=== PATIENT | female | born 1950 | race Caucasian/White ===

== ENCOUNTER 2018-05-03 10:34 | Day surgery (SDC) | payer MEDICARE, BC ==
[~2018-05-03] VITALS: Ht 167.6 cm; Wt 77.3 kg
[2018-05-03 11:01] LABS: BASOPHILS 0.2 % (0-2); EOSINOPHILS 0.4 % (0-7); HEMATOCRIT 45.7 % (36.0-48.0); HEMOGLOBIN 15.9 g/dL (12-16); IMMATURE GRANULOCYTES 0.2 % (0-5); MCH 31.5 pg (26.0-34.0); MCHC 34.8 g/dL (31.0-37.0); MCV 90.5 fL (80.0-100.0); MEAN PLATELET VOLUME 10.5 fL (7.4-10.4); NEUTROPHILS 76.2 % (40-80); PLATELET COUNT 251 10x3/uL (130-400); RBC 5.05 10x6/uL (4.00-5.40); RDW 12.8 % (11.5-14.5); WBC 8.4 10x3/uL (4.8-10.8)
[2018-05-03 11:13] LABS: ANION GAP 16.5 mmol/L (8-16); CALCIUM 9.4 mg/dL (8.5-10.1); CARBON DIOXIDE 24.2 mmol/L (21.0-32.0); POTASSIUM - SERUM 3.7 mmol/L (3.5-5.1)
[2018-05-03] MEDS ORDERED: PROTONIX40 MG PO (11:33)
[2018-05-03] MEDS ORDERED: PEPCID AC20 MG PO (11:33)
[2018-05-03 11:40] VITALS: BP 133/81; Ht 167.6 cm; Wt 77.3 kg
--- NOTE | 2018-05-03 16:23 | OP ---
PATIENT NAME: KRISTEN URIARTE MEDICAL RECORD: [id number] :52 LOCATION:D.OPS ADMISSION DATE: SURGEON: LYDIA MANUEL MD DATE OF OPERATION: 05/03/2018 PREOPERATIVE DIAGNOSIS: Complex polyp within the transverse colon at 55 cm. POSTOPERATIVE DIAGNOSES: Complex polyp within the transverse colon at 55 cm with faded tattoo. PROCEDURES: 1. Total colonoscopy to cecum. 2. Cold endoscopic biopsies, injection of Eleview submucosally, application of 4 endoscopic clips for hemostasis and tattooing proximal and distal to the polyp, which is on a fold. SURGEON: Lydia Manuel MD REVIVAL CLERK: None. BLOOD LOSS: Minimal. ANESTHESIA: IV sedation. COMPLICATIONS: None. The risks, possible complications and alternatives to procedure were explained to the patient. She elects to proceed. ENDOSCOPIC COURSE: The patient was conveyed to endoscopy suite electively on 05/03/2018. IV sedation was induced by the anesthesia staff. The patient was placed in the Farfan position. A digital rectal examination was performed. A colonoscope was inserted through the anus. It was easily advanced to the cecum. The prep was adequate. I slowly withdrew the endoscope. A combination of normal imaging and narrow band imaging were utilized. I identified the polyp on a fold. It did appear to be about a 5 cm polyp and there was some scarring particularly at the 6 o'clock position. I then advanced a sclerotherapy needle. I performed a submucosal injection with Eleview. I then advanced an endoscopic snare. I tried to snare the polyp off, but the polyp was not able to be snared. Snare was removed. Multiple cold biopsies were obtained. I then ablated the remaining polyp utilizing the argon plasma market research interviewer with the right colon setting in the forced mode. Because the tattoo had faded, I advanced a sclerotherapy needle and performed a submucosal injection of Maria Guadalupe ink proximal and distal to the polypectomy site. I was concerned about some bleeding within the polypectomy bed and for this reason, I had laid down a row of endoscopic clips times 4. The endoscope was then withdrawn under direct vision. I dragged the folds. The pullback was greater than a 28-minute pullback. A retroflexed view was obtained in the rectum. I then unretroflexed the scope and removed it under direct vision. I will see the patient in my office in 2-3 weeks. I will plan for her next colonoscopy to take place in the GI lab in 1 year. TRANSINT:[id number] Voice Confirmation ID: [id number] DOCUMENT ID: [id number] OPERATIVE REPORT [id number] KRISTEN URIARTE ROBERT MD at 1623 CC: JUDY DAWSON MD and PRABHU TOSCANO [id number] DICTATION DATE: 05/03/18 1447 ASSOCIATE DRAFTER: 05/03/18 1548 [id number] [place] [address]
--- NOTE | 2018-05-04 18:26 | HP ---
PATIENT: KRISTEN URIARTE MEDICAL RECORD: [id number] ACCOUNT: [id number] LOCATION:[facility] : 52 ADMISSION DATE: 05/03/18 PCP: LYDIA MANUEL MD HISTORY AND PHYSICAL EXAMINATION PRINCIPAL DIAGNOSIS: Complex transverse colon polyp. HISTORY: The patient underwent colonoscopy by Dr. Allred. There is a transverse colon polyp, which has been biopsied. It is a large polyp. HOME MEDICINES: Please see the nursing list. ALLERGIES: No known drug allergies. SOCIAL HISTORY: Nonsmoker. PAST MEDICAL AND SURGICAL HISTORY: Diverticulitis, gastroesophageal reflux, tonsillectomy and adenoidectomy. PHYSICAL EXAMINATION: GENERAL: The patient does not appear acutely ill. She does not appear chronically ill. VITAL SIGNS: Reviewed. EARS: External ears appear normal. EYES: Extraocular movements are intact. NECK: Trachea is midline. CHEST: No intercostal retractions. PULMONARY: Nonlabored. No stridor. IMPRESSION: Transverse colon polyp, complex. PLAN: Colonoscopy and polypectomy perhaps utilizing endoscopic mucosal resection versus argon plasma coagulation therapy. TRANSINT:[id number] Voice Confirmation ID: [id number] DOCUMENT ID: [id number] LYDIA MANUEL MD at 1826 CC: JUDY DAWSON MD and PRABHU ALLRED [id number] DICTATION DATE: 05/03/18 1351 GOLF SUPERINTENDENT: 05/03/18 1414 [facility] 05/03/18 [place] [id number] [place] [id number]
== END 2018-05-03 16:20 | disposition home or self-care (01) ==
LOC: D.OPS 10:34
PROVIDERS: Anesthesiology
DX: D12.5 Benign neoplasm of sigmoid colon (principal); K21.9 Gastro-esophageal reflux disease without esophagitis; Z01.812 Encounter for preprocedural laboratory examination